=== PATIENT | male | born 1965 | race Caucasian/White ===

== ENCOUNTER → 2024-02-29 17:02 | Outpatient (REF) | payer OTHER, SELFPAY | LOC: DHSLP 17:02 | PROVIDERS: ATTENDING PHYSICIAN Physician Assistant Medical | DX: G47.33 Obstructive sleep apnea (adult) (pediatric) (principal) | CPT/HCPCS: 95800 ==

== ENCOUNTER → 2025-01-29 09:36 | Outpatient (REF) | payer OTHER, SELFPAY | LOC: RAD 09:36 | PROVIDERS: ATTENDING PHYSICIAN Internal Medicine Clinical Cardiac Electrophysiology; FAMILY PHYSICIAN Physician Assistant Medical | DX: R94.39 Abnormal result of other cardiovascular function study (principal) | CPT/HCPCS: 75574; Q9967 ==